=== PATIENT | male | born 1990 | race Caucasian/White ===

== ENCOUNTER 2016-12-08 06:07 | Emergency (ER) | payer BC ==
[~2016-12-08] VITALS: Ht 182.9 cm; Wt 152.9 kg
[~2016-12-08 06:07] MED LIST: NORCO 5-325 TA1 EACH PO; PERCOCET 5-3251 EACH PO; PROAIR HFA8.5 GM INH; ZOFRAN ODT4 MG PO
[2016-12-08] MEDS ORDERED: IRBESARTAN150 MG PO (06:29)
[2016-12-08] MEDS ORDERED: ONDANSETRON ODT8 MG PO (09:01)
[2016-12-08] MEDS ORDERED: PERCOCET 7.5-31 EACH PO (09:02)
== END 2016-12-08 10:05 | disposition home or self-care (01) ==
LOC: ED 06:07
DX: R10.9 Unspecified abdominal pain (principal); I10 Essential (primary) hypertension; Z87.442 Personal history of urinary calculi; Z88.0 Allergy status to penicillin; Z88.5 Allergy status to narcotic agent; Z79.899 Other long term (current) drug therapy
CPT/HCPCS: 74176; 80053; 81001; 85025; 87088; 96361; 96374; 96375; 96376; 99284; J1170; J1885; J2405; J7030

== ENCOUNTER 2020-07-04 00:06 | Emergency (ER) | payer OTHER, BC ==
[~2020-07-04] VITALS: Ht 182.9 cm; Wt 154.2 kg
[~2020-07-04 00:06] MED LIST changes: +CYCLOBENZAPRINE10 MG PO; +IRBESARTAN150 MG PO; +ONDANSETRON ODT8 MG PO; +PERCOCET 7.5-31 EACH PO
--- OUTSIDE RECORDS SUMMARY | 2020-07-04 00:10 | XMS ---
PreManage Notification: LIANE ALEJANDRA Security Exhibit Carpenter Events No recent Security Events currently on file CRITERIA MET - Group Notification CARE PROVIDERS There are no care providers on record at this time. Irvin has no Care Guidelines for this patient. Coreen VISIT COUNT (12 MO.) 1 JONATHAN Lora TOTAL 1 NOTE: Visits indicate total known visits. ED/C VISIT TRACKING (12 MO.) 07/04/2020 00:08 JONATHAN [facility] [place] TYPE: Emergency COMPLAINT: - OTJ INJURY RT WRIST,ELBOW INPATIENT VISIT TRACKING (12 MO.) No inpatient visits to display in this time frame [id number]
[2020-07-04] MEDS ORDERED: HYDROCODON-ACE1 EA10 PO (00:57)
== END 2020-07-04 01:27 | disposition home or self-care (01) ==
LOC: ED 00:06
DX: S40.011A Contusion of right shoulder, initial encounter (principal); S60.211A Contusion of right wrist, initial encounter; S50.01XA Contusion of right elbow, initial encounter; W10.9XXA Fall (on) (from) unspecified stairs and steps, initial encounter; I10 Essential (primary) hypertension; Z88.0 Allergy status to penicillin; Z88.5 Allergy status to narcotic agent
CPT/HCPCS: 73080; 73110; 99283-25

== ENCOUNTER 2022-07-23 17:46 | Emergency (ER) | payer BC ==
[~2022-07-23] VITALS: Ht 182.9 cm; Wt 152.9 kg
[~2022-07-23 17:46] MED LIST changes: +HYDROCODON-ACE1 EA10 PO
--- OUTSIDE RECORDS SUMMARY | 2022-07-23 17:50 | XMS ---
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 Irvin has no Care Guidelines for this patient. Coreen VISIT COUNT (12 MO.) 1 JONATHAN Lora TOTAL 1 NOTE: Visits indicate total known visits. ED/C VISIT TRACKING (12 MO.) 07/23/2022 17:48 JONATHAN [facility] [place] TYPE: Emergency COMPLAINT: - FOREIGN OBJECT INPATIENT VISIT TRACKING (12 MO.) No inpatient visits to display in this time frame [id number]
== END 2022-07-23 20:11 | disposition home or self-care (01) ==
LOC: ED 17:46
DX: J02.9 Acute pharyngitis, unspecified (principal)
CPT/HCPCS: 99283

== ENCOUNTER 2022-11-15 10:44 | Emergency (ER) | payer BC ==
[~2022-11-15] VITALS: Ht 182.9 cm; Wt 152.9 kg
--- OUTSIDE RECORDS SUMMARY | 2022-11-15 10:47 | XMS ---
PreManage Notification: LIANE ALEJANDRA Security Master Ocean Events No recent Security Events currently on file CRITERIA MET - Group Notification [facility] There are no care providers on record at this time. Irvin has no Care Guidelines for this patient. EDorcas VISIT COUNT (12 MO.) 2 JONATHAN Lora TOTAL 2 NOTE: Visits indicate total known visits. ED/UCC VISIT TRACKING (12 MO.) 11/15/2022 10:45 JONATHAN [facility] [place] TYPE: Emergency COMPLAINT: - ABD PAIN, NAUSEA 07/23/2022 17:48 JONATHAN [facility] [place] TYPE: Emergency COMPLAINT: - FOREIGN OBJECT DIAGNOSES: - Acute pharyngitis, unspecified INPATIENT VISIT TRACKING (12 MO.) No inpatient visits to display in this time frame [id number]
[2022-11-15] MEDS ORDERED: LOSARTAN-HCTZ1 EACH PO (11:09)
[2022-11-15] MEDS ORDERED: VENTOLIN HFA18 GM INH (11:09)
[2022-11-15 12:30] VITALS: BP 148/92
== END 2022-11-15 12:30 | disposition home or self-care (01) ==
LOC: ED 10:44
DX: K63.89 Other specified diseases of intestine (principal); I10 Essential (primary) hypertension; Z88.0 Allergy status to penicillin; Z88.5 Allergy status to narcotic agent; Z79.899 Other long term (current) drug therapy
CPT/HCPCS: 36415; 74176; 80053; 81003; 83690; 85025

== ENCOUNTER 2024-12-11 08:03 | Emergency (ER) | payer BC ==
[~2024-12-11] VITALS: Ht 182.9 cm; Wt 146.6 kg
[~2024-12-11 08:03] MED LIST changes: +LOSARTAN-HCTZ1 EACH PO; +VENTOLIN HFA18 GM INH
--- OUTSIDE RECORDS SUMMARY | 2024-12-11 08:10 | XMS ---
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 Current PHONE: [phone] Irvin has no Care Guidelines for this patient. E.Jaylene VISIT COUNT (12 MO.) 1 JONATHAN Lora TOTAL 1 NOTE: Visits indicate total known visits. ED/UCC VISIT TRACKING (12 MO.) 12/11/2024 08:03 JONATHAN [facility] [place] TYPE: Emergency COMPLAINT: - LT THUMB LACERATION INPATIENT VISIT TRACKING (12 MO.) No inpatient visits to display in this time frame [email or web address]
[2024-12-11] MEDS ORDERED: NIFEDIPINE ER30 MG PO (08:16)
[2024-12-11] MEDS ORDERED: SPIRONOLACTONE100 MG NG (08:16)
[2024-12-11] MEDS ORDERED: BUPROPION HCL100 MG (08:16)
[2024-12-11] MEDS ORDERED: LIDOCAINE/RACEPINEP/TETRACAINE 3 ML SYR TOP ONE (09:00)
[2024-12-11 09:57] VITALS: BP 140/92
== END 2024-12-11 09:57 | disposition home or self-care (01) ==
LOC: ED 08:03
DX: S61.012A Laceration without foreign body of left thumb without damage to nail, initial encounter (principal); I10 Essential (primary) hypertension; Z87.442 Personal history of urinary calculi; Z88.0 Allergy status to penicillin; Z88.5 Allergy status to narcotic agent; Z79.899 Other long term (current) drug therapy; W26.0XXA Contact with knife, initial encounter
CPT/HCPCS: 99282